=== PATIENT | female | born 1975 | race African-American/Black ===

== ENCOUNTER 2023-03-04 22:37 | Emergency (ER) | payer MEDICAID, OTHER ==
[~2023-03-04] VITALS: Ht 170.2 cm; Wt 91.9 kg
[2023-03-05 01:00] VITALS: BP 120/94
[2023-03-05] MEDS ORDERED: IBUP-1456 PO (01:01)
== END 2023-03-05 01:10 | disposition home or self-care (01) ==
LOC: ER 22:40
DX: S83.91XA Sprain of unspecified site of right knee, initial encounter (principal); X50.9XXA Other and unspecified overexertion or strenuous movements or postures, initial encounter; Y93.89 Activity, other specified; Y92.89 Other specified places as the place of occurrence of the external cause; Y99.8 Other external cause status
CPT/HCPCS: 73562

== ENCOUNTER 2024-11-26 13:19 | Emergency (ER) | payer MEDICAID ==
[~2024-11-26] VITALS: Ht 170.2 cm; Wt 72.7 kg
[~2024-11-26 13:19] MED LIST: IBUP-1456 PO
[2024-11-26 14:23] VITALS: BP 158/94; PULSE 115; RESP 18; TEMP 98.4; O2SAT 100
--- NOTE | 2024-11-26 14:52 | ED.PDOC ---
Musculoskeletal HPI Comments A 49 YEAR OLD FEMALE PRESENTS TO THE ED WITH CHIEF COMPLAINT OF RIGHT LEG PAIN. PATIENT REPORTS THAT SHE HAS BEEN EXPERIENCING SUDDEN ONSET RIGHT LEG PAIN FOR THE PAST 3 DAYS. PATIENT RELAYS THAT SHE HAS HISTORY OF SURGERY TO HER RIGHT LEG BACK IN JANUARY OF 2024, BUT HAS NEVER HAD PAIN LIKE THIS BEFORE. ALSO, PATIENT RE QUESTS AN INHALER FOR HER ASTHMA AND SHE HAS BEEN EXPERIENCING DUE TO HER SMOKING. PATIENT DENIES ANY NUMBNESS, WEAKNESS, INJURY, FALL, OR CHEST PAIN. NO OTHER SYMPTOMS REPORTED AT THIS TIME OF CARE. Chief Complaint: Lower Extremity Time Seen by MD: 14:41 Primary Care Provider: GELY Reviewed Notes: Nurses Notes, Medications, Allergies Allergies: Coded Allergies: NO KNOWN ALLERGIES (Unverified , 11/26/24) Home Meds Active Scripts Albuterol Sulfate (Albuterol Sulfate Hfa) 108 Mcg/Act Aer, 108 MCG IN TID, #90 AER Prov:CARL ALCOCER 11/26/24 Ibuprofen (Ibuprofen) 800 Mg Tab, 1 TAB PO TID, #30 TAB Prov:CARL ALCOCER 11/26/24 Ibuprofen (Ibuprofen) 800 Mg Tab, 1 TAB PO TID PRN, #30 TAB 0 Refills Prov:ELIZABETH EDWARDS 03/05/23 Information Source: Patient Mode of Arrival: Ambulatory Location: Right Extremity Location: Leg Timing: Days Prehospital treatment: None Severity: Moderate Able to Move Extremity: Yes Bear Weight: Limited Pain: Moderate Mechanism: Spontaneous Circumstances: Spontaneous Onset of Symptoms: Spontaneous Symptoms: Pain DVT Risk Factors: NONE Associated signs and symptoms: Leg pain, None Past Medical History PAST MEDICAL HISTORY: Asthma, Denies Surgical History: Hysterectomy Surgical History (Other): RT KNEE SURGERY INVESTMENT BANKING ASSOCIATE History: No Pertinent INVESTMENT BANKING ASSOCIATE History Family History Family History: Unknown Social History Smoker: Non-Smoker Alcohol: Denies ETOH Use Drugs: Denies Drug Use Lives In: Home Constitutional: denies: chills, diaphoresis, fatigue, fever, malaise, sweats, weakness, others EENTM: denies: blurred vision, double vision, ear bleeding, ear discharge, ear drainage, ear pain, ear ringing, eye pain, eye redness, hearing loss, mouth pain, mouth swelling, nasal discharge, nose bleeding, nose congestion, nose pain, photophobia, tearing, throat pain, throat swelling, voice changes, others Respiratory: denies: cough, hemoptysis, orthopnea, SOB at rest, shortness of breath, SOB with excertion, stridor, wheezing, others Cardiovascular: denies: chest pain, dizzy spells, diaphoresis, Dyspnea on exertion, edema, irregular heart beat, left arm pain, lightheadedness, palpitations, PND, syncope, others Gastrointestinal: denies: abdomen distended, abdominal pain, blood streaked bowels, constipated, diarrhea, dysphagia, difficulty swallowing, hematemesis, melena, nausea, poor appetite, poor fluid intake, rectal bleeding, rectal pain, vomiting, others Genitourinary: denies: abnormal vagina bleeding, burning, dyspareunia, dysuria, flank pain, frequency, hematuria, incontinence, pain, , vagina discharge, urgency, others Neurological: denies: dizziness, fainting, headache, left sided numbness, left sided weakness, numbness, paresthesia, pre-existing deficit, right sided numbness, right sided weakness, seizure, speech problems, tingling, tremors, weakness, others Musculoskeletal: reports: muscle pain, others (RT LEG PAIN); denies: back pain, gout, joint pain, joint swelling, muscle stiffness, neck pain Integumetry: denies: bruises, change in color, change in hair/nails, dryness, laceration, lesions, lumps, rash, wounds, others Allergic/Immunocompromised: denies: Difficulty Healing, Frequent Infections, Hives, Itching, others Hematologic/Lymphatic: denies: anemia, blood clots, easy bleeding, easy bruising, swollen glands, others Endocrine: denies: excessive hunger, excessive sweating, excessive thirst, excessive urination, flushing, intolerance to cold, intolerance to heat, unexplained weight gain, unexplained weight loss, others Psychiatric: denies: anxiety, bipolar disorder, depression, hopeless, panic disorder, schizophrenia, sleepless, suicidal, others All Other Systems: Reviewed and Negative Physical Exam General Appearance: No Apparent Distress, Normal HEENT: Normal ENT Inspection, PERRL/EOMI Neck: Full Range of Motion, Non-Tender, Normal, Normal Inspection Respiratory: Chest Non-Tender, Lungs Clear, No Accessory Muscle Use, No Respiratory Distress, Normal Breath Sounds Cardiovascular: No Edema, No JVD, No Murmur, No Gallop, Normal Peripheral P ulses, Regular Rate/Rhythm Breast Exam: Deferred Gastrointestinal: No Organomegaly, Non Tender, No Pulsatile Mass, Normal Bowel Sounds, Soft Genitalia: Deferred Pelvic: Deferred Rectal: Deferred Extremities: No calf tenderness, Normal capillary refill, Normal inspection, Normal range of motion, No pedal edema, Tender (RIGHT LOWER EXTREMITY, NO REDNESS, SWELLING AND DVT SIGNS. ) Musculoskeletal : Apperance: Normal Neurologic: Alert, squeegeer and former II-XII nml as Tested, No Motor Deficits, Normal Affect, Normal Mood, No Sensory Deficits Cerebellar Function: Normal Reflexes: Normal Skin: Dry, Normal Color, Warm Peripheral Pulses: 2+ carotid (R), 2+ carotid (L), 2+ dorsalis pedis (R), 2+ dorsalis pedis (L) Lymphatic: No Adenopathy Was a procedure done? Was a procedure done?: No Differential Diagnosis EXT Differential Diagnosis: Deep Vein Thrombosis, Sprain, Strain X-Ray, Labs, Meds, VS Vital Signs Date Time Temp Pulse Resp B/P (MAP) Pulse Ox O2 Delivery O2 Flow Rate FiO2 11/26/24 14:23 98.4 115 18 158/94 (115) 100 98.4 11/26/24 14:23 115 18 100 Room Air 11/26/24 13:52 98.4 115 18 158/94 (115) 100 Current Medications Medications (Trade) Dose Ordered Sig/Jonatan Route Start Time Stop Time Status Last Admin Acetaminophen/ Hydrocodone Bitart (Squires 5/325MG Tab) 1 tab ONCE ONCE PO 11/26/24 15:15 11/26/24 15:16 DC 11/26/24 15:18 RT DVT US: FINDINGS: Normal phasic venous flow. Veins are fully compressible. No filling defects. IMPRESSION: 1. No evidence of deep vein thrombosis. X-Ray, Labs, Meds, VS Comment EXTERNAL MEDICAL RECORDS REVIEWED: [NONE] INDEPENDENT HISTORIANS: [NONE] SOCIAL DETERMINANTS OF HEALTH: [NONE] LABS ORDERED: NONE REVIEWED AND INTERPRETED RESULTS: RT LOWER DVT US IMAGING ORDERED: RT LOWER DVT US TREATMENTS ORDERED: NORCO 5/325MG PO PROCEDURES PERFORMED: NONE CRITICAL CARE TIME: NONE I HAVE DISCUSSED THE PATIENT WITH THE ATTENDING PHYSICIAN DR. MALDONADO AND HE AGREES WITH THE PATIENT'S PLAN OF CARE AND DISPOSITION. BASED ON HISTORY OF PRESENT ILLNESS, AND PHYSICAL EXAM, PATIENT WILL BE DISCH ARGED HOME. DISCUSSED PLAN FOR DISCHARGE HOME WITH RX. MEDICATION WARNINGS GIVEN. SHARED DECISION MAKING: DISCUSSED WITH PATIENT THAT THEIR WORKUP WAS NORMAL. PATIENT INSTRUCTED TO FOLLOW UP WITH PRIMARY CARE PROVIDER IN 1-2 DAYS FOR RE- EVALUATION OF SYMPTOMS. PATIENT VERBALIZES UNDERSTANDING TO RETURN TO ED FOR NEW OR WORSENING SYMPTOMS OR IF FOLLOW UP WITH PCP CANNOT BE OBTAINED. PATIENT FEELS COMFORTABLE GOING HOME AT THIS TIME. ALL QUESTIONS ADDRESSED AT TIME OF DISCHARGE. Time of 1ST Reevaluation: 16:00 Reevaluation 1ST: Improved Patient Education/Counseling: Diagnosis, Treatment, Need For Follow Up Family Education/Counseling: Diagnosis, Treatment, No Family Present Medical Screening: No EMC Exist At This Time Departure 1 Departure Time of Disposition: 16:00 Impression: Primary Impression: Muscle strain of right lower leg Qualified Codes: S86.911A - Strain of unspecified muscle(s) and tendon(s) at lower leg level, right leg, initial encounter Additional Impression: Medication refill Disposition: 01 HOME / SELF CARE / HOMELESS Condition: Stable Additional Instructions: FOLLOW-UP WITH PCP IN 1 TO 2 DAYS. TAKE MEDICATIONS PRESCRIBED. RETURN TO ED FOR ANY NEW OR WORSENING SYMPTOMS. e-Prescriptions Albuterol Sulfate (Albuterol Sulfate Hfa) 108 Mcg/Act Aer 108 MCG IN TID, #90 AER Prov: CARL ALCOCER 11/26/24 Ibuprofen (Ibuprofen) 800 Mg Tab 1 TAB PO TID, #30 TAB Prov: CARL ALCOCER 11/26/24 Discharged With: Self Critical Care Note Critical Care Time?: No Stability Stability form required: No Heart Score Heart Score: Heart Score Response (Comments) Value History N/A 0 EKG N/A 0 Age N/A 0 Risk Factors N/A 0 Troponin N/A 0 Total 0 I personally scribed for CARL ALCOCER ([email or web address]) on 11/26/24 at 14:52. Electronically submitted by Manolo Blakely ([email or web address]). I personally scribed for CARL ALCOCER ([email or web address]) on 11/26/24 at 15:28. Electronically submitted by Manolo Blakely ([email or web address]). I personally scribed for CARL ALCOCER ([email or web address]) on 11/26/24 at 15:30. Electronically submitted by Manolo Blakely ([email or web address]). CARL ALCOCER Nov 26, 2024 14:52
--- NOTE | 2024-11-26 15:01 | DVH ---
Ultrasound right lower extremity venous doppler INDICATION: PAIN, HX OF RIGHT LOWER FX TECHNIQUE: Duplex venous sonography was performed with real-time and flow sensitive images submitted for evaluation. FINDINGS: Normal phasic venous flow. Veins are fully compressible. No filling defects. IMPRESSION: 1. No evidence of deep vein thrombosis.
[2024-11-26] MEDS: HYDROcodone-ACET 5/325MG TAB PO ONE (15:18)
[2024-11-26] MEDS ORDERED: ALBU108A5 IN (15:35)
[2024-11-26] MEDS ORDERED: IBUP-1456 PO (15:35)
[2024-11-26] MEDS ORDERED: GABA-1250 PO (15:47)
== END 2024-11-26 15:54 | disposition home or self-care (01) ==
LOC: ER 13:28
DX: S86.911A Strain of unspecified muscle(s) and tendon(s) at lower leg level, right leg, initial encounter (principal); J45.909 Unspecified asthma, uncomplicated; Z76.0 Encounter for issue of repeat prescription; Z90.710 Acquired absence of both cervix and uterus; Z98.890 Other specified postprocedural states; X58.XXXA Exposure to other specified factors, initial encounter; Y93.89 Activity, other specified; Y92.89 Other specified places as the place of occurrence of the external cause; Y99.8 Other external cause status
CPT/HCPCS: 93971

== ENCOUNTER 2025-01-14 01:45 | Emergency (ER) | payer MEDICAID ==
[~2025-01-14] VITALS: Ht 170.2 cm; Wt 86.4 kg
[~2025-01-14 01:45] MED LIST changes: +ALBU108A5 IN; +GABA-1250 PO
--- NOTE | 2025-01-14 02:08 | ED.PDOC ---
HPI Comments 49 year old female presents to the ED via EMS with a chief complaint of chest pain onset 1 week. Patient states she has been experiencing intermittent RT sided chest pain, radiates to RT shoulder for the past week, rates pain 7/10. She began experiencing shortness of breath, palpitations and called 911. For the past 2 days, she has been experiencing cough, congestion, headache, sore throat. PMHx asthma, HTN. Denies fevers, chills, nausea, vomiting, diarrhea, abdominal pain, dizziness. No other symptoms or modifying factors present at this time. Chief Complaint: Shortness of Breath Time Seen by MD: 01:55 Primary Care Provider: GELY Reviewed Notes: Medications, Allergies Allergies: Coded Allergies: NO KNOWN ALLERGIES (Unverified , 11/26/24) Home Meds Active Scripts Prednisone (Prednisone) 20 Mg Tab, 20 MG PO DAILY for 4 Days, #4 MG Prov:PRAVIN ROLON MD 01/14/25 Azithromycin (ZITHROMAX TABLET) 250 Mg Tb, 250 MG PO DAILY for 4 Days, #4 TAB Prov:PRAVIN ROLON MD 01/14/25 Acetaminophen (Acetaminophen Er) 650 Mg Tab, 650 MG PO TIDPRN PRN for 5 Days, #15 TAB Prov:PRAVIN ROLON MD 01/14/25 Gabapentin (Gabapentin) 300 Mg Cap, 1 CAP PO BID, #30 CAP Prov:CARL ALCOCER 11/26/24 Albuterol Sulfate (Albuterol Sulfate Hfa) 108 Mcg/Act Aer, 108 MCG IN TID, #90 AER Prov:CARL ALCOCER 11/26/24 Ibuprofen (Ibuprofen) 800 Mg Tab, 1 TAB PO TID, #30 TAB Prov:CARL ALCOCER 11/26/24 Ibuprofen (Ibuprofen) 800 Mg Tab, 1 TAB PO TID PRN, #30 TAB 0 Refills Prov:ELIZABETH EDWARDS 03/05/23 Information Source: Patient, Emergency Med Personnel Mode of Arrival: EMS Severity: Moderate Timing: Weeks Duration: Intermittent Prehospital treatment: None Location: Chest (R) Radiation: Shoulder (R) Quality: Sharp Onset: At Rest Cardiac Risk Factors: Smoker, HTN PE Risk Factors: None History of: None Modifying Factors: Nothing Associated Signs and Symptoms: SOB, Palpitations Vital Signs Vital Signs Date Time Temp Pulse Resp B/P (MAP) Pulse Ox O2 Delivery O2 Flow Rate FiO2 01/14/25 07:05 112 18 146/98 01/14/25 07:02 100 Room Air* 0 21 01/14/25 07:01 98.7 98.7 Physical Exam General: Awake, alert and oriented. No acute distress. Skin: Skin in warm, dry and intact. Appropriate color for ethnicity. HEENT: The head is normocephalic and atraumatic. Conjunctivae are clear without exudates or hemorrhage. Sclera is non-icteric. EOM are intact. No signs of nystagmus. Eyelids are normal in appearance without swelling or lesions. Oral mucosa is pink and moist Neck: The neck is supple with normal range of motion. No JVD. Cardiac: Heart rate and rhythm are normal. No murmurs, gallops, or rubs are a uscultated. Respiratory: No signs of respiratory distress. Lung sounds are clear in all lobes bilaterally without rales, rhonchi, or wheezes. Abdominal: Abdomen is soft, non-tender without distention. Bowel sounds are present and normoactive in all four quadrants. Extremities: Upper and lower extremities are atraumatic in appearance without deformity or edema. Neurological: The patient is awake, alert and oriented to person, place, and time with normal speech. Speech is clear. There is no facial asymmetry. Psychiatric: Appropriate mood and affect. Good judgement and insight. Review of Systems: REVIEW OF SYSTEMS: No fever, no chills, or fatigue HEENT: No sore throat, no earache, no congestion, no neck pain. Cardiac: No chest pain. No palpitations. Lungs: No shortness of breath, no cough. GI: No nausea, no vomiting, no diarrhea, no constipation, no abdominal pain : No dysuria, frequency, or urgency. No hematuria. Musculoskeletal: No joint pain , no joint swelling, no extremity edema. Skin: No rash, no itching. Neuro: No headache, no dizziness, no weakness Past Medical History PAST MEDICAL HISTORY: Asthma, HTN Surgical History: Hysterectomy CHIEF KNOWLEDGE OFFICER History: No Pertinent CHIEF KNOWLEDGE OFFICER History Family History Family History: Unknown Social History Smoker: Cigarettes Alcohol: Denies ETOH Use Drugs: Denies Drug Use Lives In: Home EKG EKG : Comments Nonspecific ST changes, no STEMI. Was a procedure done? Was a procedure done?: No CP Differential Dx Differential Diagnosis: Other (Differential diagnoses considered include acute ischemic coronary syndrome, aortic dissection, cardiac tamponade, mediastinitis, pulmonary embolus, pneumothorax, tension pneumothorax, esophageal rupture, coron poppy artery vasospasm, myocarditis, pericarditis, pneumonia, pulmonary edema, esophageal tear, pancreatitis, aortic stenosis, dilated cardiomyopathy, hypertrophic cardiomyopathy, mitral valve prolapse, malignancy, pleuritis, pneumomediastinum, primary pulmonary hypertension, cholecystitis, esophageal spasm, esophagus, gastritis, GERD, peptic ulcer disease, costochondritis, fibromyalgia, rib fracture, herpes zoster, radicular syndromes, thoracic outlet syndrome, somatization.) X-Ray, Labs, Meds, VS Vital Signs Date Time Temp Pulse Resp B/P (MAP) Pulse Ox O2 Delivery O2 Flow Rate FiO2 01/14/25 07:05 112 18 146/98 01/14/25 07:02 112 20 100 Room Air* 0 21 01/14/25 07:01 98.7 112 18 146/98 (114) 100 98.7 01/14/25 04:33 98.9 110 16 135/95 (108) 99 98.9 01/14/25 02:15 110 16 135/95 01/14/25 01:47 113 01/14/25 01:45 99 Room Air* 0 21 01/14/25 01:45 98.4 135 21 150/91 (110) 99 98.4 Lab Test 01/14/25 05:15 01/14/25 03:01 01/14/25 02:10 Range/Units Troponin I High Sensitivity < 3 L < 3 L < 3 L </=34 ng/L White Blood Count 6.2 4.4-10.8 10^3/uL Red Blood Count 3.98 L 4.0-5.20 10^6/uL Hemoglobin 11.8 L 12.2-16.2 g/dL Hematocrit 34.6 L 36.0-46.0 % Mean Corpuscular Volume 86.8 80.0-100.0 fL Mean Corpuscular Hemoglobin 29.5 28.0-32.0 pg Mean Corpuscular Hemoglobin Concent 34.0 32.0-36.0 g/dL Red Cell Distribution Width 14.4 H 11.8-14.3 % Platelet Count 269 140-450 10^3/uL Mean Platelet Volume 8.4 6.9-10.8 fL Neutrophils (%) (Auto) 54.9 37.0-80.0 % Lymphocytes (%) (Auto) 35.1 10.0-50.0 % Monocytes (%) (Auto) 6.7 0.0-12.0 % Eosinophils (%) (Auto) 2.8 0.0-7.0 % Basophils (%) (Auto) 0.5 0.0-2.0 % Neutrophils # (Auto) 3.4 1.6-8.6 10 ^3/uL Lymphocytes # (Auto) 2.2 0.4-5.4 10 ^3/uL Monocytes # (Auto) 0.4 0-1.3 10 ^3/uL Eosinophils # (Auto) 0.2 0-0.8 10 ^3/uL Basophils # (Auto) 0 0-0.2 10 ^3/uL Nucleated Red Blood Cells 0.0 % Sodium Level 143 136-145 mmol/L Potassium Level 3.4 L 3.5-5.1 mmol/L Chloride Level 106 98-107 mmol/L Carbon Dioxide Level 30 20-31 mmol/L Anion Gap 7 5-15 Blood Urea Nitrogen 7 L 9-23 mg/dL Creatinine 0.85 0.550-1.02 mg/dL Glomerular Filtration Rate Calc 84 >90 mL/min BUN/Creatinine Ratio 8.2 L 10.0-20.0 Serum Glucose 125 H 74-106 mg/dL Calcium Level 10.4 8.7-10.4 mg/dL Total Bilirubin 0.2 0.2-1.0 mg/dL Aspartate Amino Transferase (AST) < 8 L 13-40 U/L Alanine Aminotransferase (ALT) 11 7-40 U/L Alkaline Phosphatase 66 46-116 U/L B-Type Natriuretic Peptide 6.18 0-100 pg/mL Total Protein 7.0 5.7-8.2 g/dL Albumin 4.4 3.2-4.8 g/dL Current Medications Medications (Trade) Dose Ordered Sig/Jonatan Route Start Time Stop Time Status Last Admin Aspirin 324 mg ONCE ONCE PO 01/14/25 02:15 01/14/25 02:16 DC 01/14/25 02:15 Morphine Sulfate 2 mg ONCE ONCE IV 01/14/25 02:15 01/14/25 02:16 DC 01/14/25 02:15 Diazepam (Valium Tablet) 5 mg ONCE ONCE PO 01/14/25 02:15 01/14/25 02:16 DC 01/14/25 02:15 Potassium Chloride (Klor-Con Tablet) 40 meq ONCE ONCE PO 01/14/25 04:30 01/14/25 04:31 DC 01/14/25 04:57 [place] [id number] Ph: [phone] DIAGNOSTIC IMAGING Diagnostic Imaging Report : [id number] Signed PATIENT: ZAIN LAGUNASCCT: [id number] UNIT: [id number] : 1975 LOC: ER ROOM / BED: / AGE / SEX: 49 / F ADM STATUS: REG ER SERVICE 2 ORDERING PHYSICIAN: PRAVIN ROLON MD PROCEDURE(s): CXR1 - CHEST XRAY 1 VIEW REASON: cp ORDER NUMBER(s): [id number], ACCESSION NUMBER(s): [id number] CHEST RADIOGRAPH Indication: cp Technique: Single frontal view of the chest was obtained COMPARISON: None FINDINGS: Lines and Tubes: None Lungs: Clear Pleura: No effusion. No pneumothorax. Cardiomediastinal contours: Unremarkable Bones: Unremarkable IMPRESSION: 1. Clear lungs. ATED BY: GABBY MEYERS MD DICTATED DATE/TIME: 01/14/25230 SIGNED BY: GABBY MEYERS MD SIGNED DATE/TIME: 01/14/25230 CC: Time of 1ST Reevaluation: 02:25 Reevaluation 1ST: Unchanged Patient Education/Counseling: Diagnosis, Treatment, Prognosis Family Education/Counseling: No Family Present Departure 1 Departure Time of Disposition: 05:58 Impression: Primary Impression: Shortness of breath Additional Impressions: Asthma exacerbation Shoulder pain Disposition: 01 HOME / SELF CARE / HOMELESS Condition: Stable Additional Instructions: ED DISCHARGE INSTRUCTIONS Instructions: Please read all instructions provided in this packet carefully. Although you have been discharged from the Emergency Department, this does not mean that you have a "clean bill of health". No definitive diagnosis for your symptoms has been made today. It is possible that you are in the process of developing a serious illness. This is why you must return to the ED without fail if any new or worsening symptoms (especially if your symptoms include chest pain, trouble breathing, abdominal pain, fever, headache, confusion, trouble seeing, or trouble walking) It is also very important that you see a primary care doctor within the next 3-5 days to follow up. If you are unable to get an appointment, return to the ED for re-evaluation. SHORTNESS OF BREATH EDUCATION Shortness of breath has many causes. Sometimes conditions such as anxiety can lead to shortness of breath. Some people get mild shortness of breath when they exercise. Trouble breathing also can be a symptom of a serious problem, such as asthma, lung disease, emphysema, heart problems, and pneumonia. If your shortness of breath continues, you may need tests and treatment. Watch for any changes in your breathing and other symptoms. Follow-up care is a hebert part of your treatment and safety. Be sure to make and go to all appointments, and call your doctor if you are having problems. It's also a good idea to know your test results and keep a list of the medicines you take. How can you care for yourself at home? Do not smoke or allow others to smoke around you. If you need help quitting, ta lk to your doctor about stop-smoking programs and medicines. These can increase your chances of quitting for good. Get plenty of rest and sleep. Take your medicines exactly as prescribed. Call your doctor if you think you are having a problem with your medicine. Find healthy ways to deal with stress. Exercise daily. Get plenty of sleep. Eat regularly and well. When should you call for help? Call 911 anytime you think you may need emergency care. For example, call if: You have severe shortness of breath. You have symptoms of a heart attack. These may include: Chest pain or pressure, or a strange feeling in the chest. Sweating. Shortness of breath. Nausea or vomiting. Pain, pressure, or a strange feeling in the back, neck, jaw, or upper belly or in one or both shoulders or arms. Lightheadedness or sudden weakness. A fast or irregular heartbeat. After you call 911, the repeat photocomposing machine operator may tell you to chew 1 adult-strength or 2 to 4 low-dose aspirin. Wait for an ambulance. Do not try to drive yourself. Call your doctor now or seek immediate medical care if: Your shortness of breath gets worse or you start to wheeze. Wheezing is a high- pitched sound when you breathe. You wake up at night out of breath or have to prop your head up on several pillows to breathe. You are short of breath after only light activity or while at rest. Watch closely for changes in your health, and be sure to contact your doctor if: You do not get better over the next 1 to 2 days. Credits for Shortness of Breath: Care Instructions Current as of: May 06, 2024 Author: [employer] Staff e-Prescriptions Prednisone (Prednisone) 20 Mg Tab 20 MG PO DAILY for 4 Days, #4 MG Prov: PRAVIN ROLON MD 01/14/25 Azithromycin (ZITHROMAX TABLET) 250 Mg Tb 250 MG PO DAILY for 4 Days, #4 TAB Prov: PRAVIN ROLON MD 01/14/25 Acetaminophen (Acetaminophen Er) 650 Mg Tab 650 MG PO TIDPRN PRN for 5 Days, #15 TAB Prov: PRAVIN ROLON MD 01/14/25 Comments 49 year old female with chest pain and shortness of breath. EKG negative for signs of ischemia. Serial High sensitivity troponin negative. CXR shows no acute process. CT angiogram negative for pulmonary embolism. Presentation not suggestive of acute coronary syndrome, pulmonary embolism or aortic dissection. Patient improved at time of discharge and states she would like to go home. No hypoxia, respiratory distress or dyspnea at discharge. Patient able to ambulate without difficulty. Patient well-appearing, nontoxic. Advised prompt follow-up with PCP, return to the ED with any new, worsening or concerning symptoms. Extensive evaluation was performed in attempt to identify or rule out: (See differential diagnosis section) The following tests were ordered, and results were reviewed by me and discussed with patient: (See diagnostic results section) The following test were independently interpreted by me: EKG, chest x-ray I reviewed and agreed with the following test results read by other providers: Chest x-ray I reviewed the following notes from the pt's past medical encounters: N/A Additional information was gathered from interviewing the following independent historians: EMS personnel Discussion of management or test interpretation with external physician/other qualified health lawn care professional: N/A Addressed one or more chronic illnesses with severe exacerbation, progression, or side effects of treatment: Asthma exacerbation Drug therapy requiring intensive monitoring for toxicity: IV contrast Parenteral controlled substances: IV morphine Decision regarding elective major surgery with identified patient or procedure risk factors: N/A Decision regarding emergency major surgery: N/A Decision not to resuscitate or to de-escalate care because of poor prognosis: N/A Diagnosis or treatment significantly limited by social determinants of health: N/A Decision regarding hospitalization or escalation of hospital level of care: Ri sks and benefits of admission for further treatment of patient's condition was considered however due to patient's stable condition patient will be discharged to follow up closely or return to care for worsening of condition or inability to follow up. Critical Care Note Critical Care Time?: No Stability Stability form required: No Heart Score Heart Score: Heart Score Response (Comments) Value History Slightly Suspicious 0 EKG Repolarization Disturb 1 Age 45-64 1 Risk Factors 1 or 2 risk factors 1 Troponin N/A 0 Total 3 I personally scribed for PRAVIN ROLON MD ([email or web address]) on 01/14/25 at 02:08. Electronically submitted by Alysia Dunn ([email or web address]). I personally scribed for PRAVIN ROLON MD ([email or web address]) on 01/14/25 at 04:17. Electronically submitted by Alysia Dunn ([email or web address]). PRAVIN ROLON MD Jan 14, 2025 02:08
[2025-01-14] MEDS: ASPirin 81 mg TAB PO ONE (02:15)
[2025-01-14] MEDS: diazePAM 5 MG TAB PO ONE (02:15)
[2025-01-14] MEDS: MORPHINE SULFATE INJ 2 MG/ml SYRG IV ONE (02:15)
[2025-01-14] MEDS: IBUPROFEN 600 MG TAB PO ONE (02:15)
[2025-01-14] MEDS: ACETAMINOPHEN 500 MG TAB or CAP PO ONE (02:15)
[2025-01-14 02:31] LABS: Basophils # (auto) 0 10 ^3/uL (0-0.2); Basophils % (auto) 0.5 % (0.0-2.0); Eosinophils # (auto) 0.2 10 ^3/uL (0-0.8); Eosinophils % (auto) 2.8 % (0.0-7.0); Hematocrit 34.6 % (36.0-46.0); Hemoglobin 11.8 g/dL (12.2-16.2); Lymphocytes # (auto) 2.2 10 ^3/uL (0.4-5.4); Lymphocytes % (auto) 35.1 % (10.0-50.0); Mean Corpuscular Hemoglobin 29.5 pg (28.0-32.0); Mean Corpuscular Volume 86.8 fL (80.0-100.0); Monocytes # (auto) 0.4 10 ^3/uL (0-1.3); Monocytes % (auto) 6.7 % (0.0-12.0); Neutrophils # (auto) 3.4 10 ^3/uL (1.6-8.6); Neutrophils % (auto) 54.9 % (37.0-80.0); Platelet Count (auto) 269 10^3/uL (140-450); Red Blood Cells 3.98 10^6/uL (4.0-5.20); Red Cell Distribution Width 14.4 % (11.8-14.3); White Blood Cell 6.2 10^3/uL (4.4-10.8)
--- NOTE | 2025-01-14 02:33 | DVH ---
CHEST RADIOGRAPH Indication: cp Technique: Single frontal view of the chest was obtained COMPARISON: None FINDINGS: Lines and Tubes: None Lungs: Clear Pleura: No effusion. No pneumothorax. Cardiomediastinal contours: Unremarkable Bones: Unremarkable IMPRESSION: 1. Clear lungs.
[2025-01-14 02:49] LABS: Alanine Aminotransferase 11 U/L (7-40); Albumin 4.4 g/dL (3.2-4.8); Alkaline Phosphatase 66 U/L (46-116); Anion Gap 7 (5-15); BUN/Creatinine Ratio 8.2 (10.0-20.0); Calcium 10.4 mg/dL (8.7-10.4); Carbon Dioxide 30 mmol/L (20-31); Chloride 106 mmol/L (98-107); Sodium 143 mmol/L (136-145)
[2025-01-14 03:27] LABS: Aspartate Aminotransferase < 8 U/L (13-40); Blood Urea Nitrogen 7 mg/dL (9-23); Glucose 125 mg/dL (74-106); Potassium 3.4 mmol/L (3.5-5.1)
[2025-01-14 03:28] LABS: Bilirubin, Total 0.2 mg/dL (0.2-1.0)
--- NOTE | 2025-01-14 03:32 | ECG ---
[facility] Test Date: 2025-01-14 Test Time: 01:47:42 Pat Name: SHARMILA LAGUNAS Department: ED Room: Gender: F Trash Hauler: ER : 1975 Requested By: PRAVIN ROLON Order Number: [id number] Reading MD: Tj Carrillo Measurements Intervals Hiram Rate: 113 P: 60 PA: 170 QRS: 52 QRSD: 94 T: 27 QT: 334 QTc: 458 Interpretive Statements Sinus tachycardia Probable left atrial enlargement ST elevation suggests acute pericarditis Electronically Signed On 01-14-2025 20:57:57 PDT by Tj Carrillo Please click the below link to view image of tracing.
[2025-01-14] MEDS: IOHEXOL 350 MG/ML 100ML IJ ONE (04:49)
[2025-01-14] MEDS: POTASSIUM CHL 20 Meq TABLET PO ONE (04:57)
--- NOTE | 2025-01-14 05:39 | DVH ---
EXAM: CT Angiography Chest With Intravenous Contrast CLINICAL INDICATION: Rule out pulmonary embolism TECHNIQUE: Axial computed tomographic angiography images of the chest with intravenous contrast. Th is CT exam was performed using one or more of the following dose reduction techniques: automated exp osure control, adjustment of the mA and/or kV according to patient size, and/or use of iterative ori nstruction technique. MIP reconstructed images were created and reviewed. CONTRAST: COMPARISON: None FINDINGS: LIMITATIONS: Suboptimal opacification of the pulmonary arteries. PULMONARY ARTERIES: No pulmonary embolism is identified. Some of the distal pulmonary arteries can not be evaluated due to suboptimal opacification. AORTA: No acute findings. No thoracic aortic aneurysm. LUNGS AND PLEURAL SPACES: Unremarkable. No mass. No consolidation. No significant effusion. No pneumothorax. HEART: Unremarkable. No cardiomegaly. No significant pericardial effusion. No evidence of RV dys function. BONES/JOINTS: No acute fracture. No dislocation. SOFT TISSUES: Unremarkable. LYMPH NODES: Unremarkable. No enlarged lymph nodes. OTHER FINDINGS: . . IMPRESSION: No pulmonary embolism is identified. Some of the distal pulmonary arteries cannot be evaluated due to suboptimal opacification.
[2025-01-14] MEDS ORDERED: PRED20TA2 PO (05:59)
[2025-01-14] MEDS ORDERED: ACET650T12 PO (05:59)
[2025-01-14] MEDS ORDERED: AZIT-185 PO (05:59)
[2025-01-14] MEDS: predniSONE 20 MG TAB PO ONE (06:00)
[2025-01-14] MEDS: AZITHROMYCIN 250 MG TAB PO ONE (06:00)
[2025-01-14 07:01] VITALS: TEMP 98.7
[2025-01-14 07:02] VITALS: PULSE 112; RESP 20; O2SAT 100
[2025-01-14 07:05] VITALS: BP 146/98; PULSE 112; RESP 18
== END 2025-01-14 07:03 | disposition home or self-care (01) ==
LOC: ER 01:45 → EDBD 01:45 → ER 07:03
DX: J45.901 Unspecified asthma with (acute) exacerbation (principal); I10 Essential (primary) hypertension; F17.210 Nicotine dependence, cigarettes, uncomplicated; Z90.710 Acquired absence of both cervix and uterus; Z79.1 Long term (current) use of non-steroidal anti-inflammatories (NSAID); Z79.52 Long term (current) use of systemic steroids; Z79.899 Other long term (current) drug therapy
CPT/HCPCS: 36415; 71045; 71275; 80053; 83880; 84484; 85025; 93005; 96374; 99285; J2270; Q9967

== ENCOUNTER 2025-02-01 11:43 | Emergency (ER) | payer MEDICAID ==
[~2025-02-01] VITALS: Ht 170.2 cm; Wt 80.4 kg
[~2025-02-01 11:43] MED LIST changes: +ACET650T12 PO; +AZIT-185 PO; +PRED20TA2 PO
[2025-02-01] MEDS ORDERED: NYS5LQ MT (12:32)
[2025-02-01] MEDS ORDERED: CETI5TAB6 PO (12:33)
--- NOTE | 2025-02-01 12:33 | ED.PDOC ---
History of Present Illness(SKN HPI Comments 49 year F presents for whitish plaques on the tongue. Symptoms started weeks ago. Denies any other complaint. Denies of any hoarseness difficulty swallowing pain fevers chills nausea vomiting diarrhea Chief Complaint: Allergic Reaction Time Seen by MD: 12:02 Primary Care Provider: LINDA History of Present Illness: Nurses Notes, Medications, Allergies Allergies: Coded Allergies: NO KNOWN ALLERGIES (Unverified , 11/26/24) Home Meds Active Scripts Prednisone (Prednisone) 20 Mg Tab, 20 MG PO DAILY for 4 Days, #4 MG Prov:PRAVIN ROLON MD 01/14/25 Azithromycin (ZITHROMAX TABLET) 250 Mg Tb, 250 MG PO DAILY for 4 Days, #4 TAB Prov:PRAVIN ROLON MD 01/14/25 Acetaminophen (Acetaminophen Er) 650 Mg Tab, 650 MG PO TIDPRN PRN for 5 Days, #15 TAB Prov:PRAVIN ROLON MD 01/14/25 Gabapentin (Gabapentin) 300 Mg Cap, 1 CAP PO BID, #30 CAP Prov:CARL ALCOCER 11/26/24 Albuterol Sulfate (Albuterol Sulfate Hfa) 108 Mcg/Act Aer, 108 MCG IN TID, #90 AER Prov:CARL ALCOCER 11/26/24 Ibuprofen (Ibuprofen) 800 Mg Tab, 1 TAB PO TID, #30 TAB Prov:CARL ALCOCER 11/26/24 Ibuprofen (Ibuprofen) 800 Mg Tab, 1 TAB PO TID PRN, #30 TAB 0 Refills Prov:ELIZABETH EDWARDS 03/05/23 Information Source: Patient Mode of Arrival: Wheelchair Past Medical History PAST MEDICAL HISTORY: Asthma, HTN Surgical History: Hysterectomy OPTIMIZATION ANALYST History: No Pertinent OPTIMIZATION ANALYST History Family History Family History: Unknown Social History Smoker: Cigarettes Alcohol: Denies ETOH Use Drugs: Denies Drug Use Lives In: Home All Other Systems: Reviewed and Negative (per hpi) Physical Exam General Appearance: No Apparent Distress, Normal HEENT: Normal ENT Inspection, Pharynx Normal, TMs Normal, Other (Tongue: white plaque. Uvula midline. Moist mucous membranes) Neck: Full Range of Motion, Non-Tender, Normal, Normal Inspection Respiratory: Chest Non-Tender, Lungs Clear, No Accessory Muscle Use, No Respiratory Distress, Normal Breath Sounds Cardiovascular: No Murmur, No Gallop, Regular Rate/Rhythm Breast Exam: Deferred Gastrointestinal: No Organomegaly, Non Tender, No Pulsatile Mass, Normal Bowel Sounds, Soft Genitalia: Deferred Pelvic: Deferred Rectal: Deferred Extremities: No calf tenderness, Normal capillary refill, Normal inspection, Normal range of motion, Non-tender, No pedal edema Musculoskeletal : Apperance: Normal Neurologic: Alert, visual training aide II-XII nml as Tested, No Motor Deficits, Normal Affect, Normal Mood, No Sensory Deficits Cerebellar Function: Normal Reflexes: Normal Skin: Dry, Normal Color, Warm Lymphatic: No Adenopathy Was a procedure done? Was a procedure done?: No Differential Diagnosis (INTG) Differential Diagnosis: Other X-Ray, Labs, Meds, VS Vital Signs Date Time Temp Pulse Resp B/P (MAP) Pulse Ox O2 Delivery O2 Flow Rate FiO2 02/01/25 11:47 97.8 103 20 153/90 (111) 99 97.8 X-Ray, Labs, Meds, VS Comment Findings are consistent with oral thrush. Symptoms mild to moderate. Not immunocompromised Prescribed nystatin. Take medication as prescribed. Patient is stable for discharge at this time. External notes reviewed. Test results and diagnostic imaging interpreted. All diagnostic findings, discharge care, education and instructions provided Follow-up with PCP in 2 to 3 days Patient verbalized understanding and agreed to treatment plan Vital signs stable, afebrile, no acute distress noted Patient ambulatory with strong steady gait Advised to return precautions for any new or worsening symptoms, return to ER immediately for re-evaluation Patient is aware that the purpose of this visit was for an acute medical emergency requiring emergent stabilization. Chronic conditions, including malignancies have not been ruled out. Patient is instructed to follow up with PCP as directed and discharge instructions for continued care and workup. If unable to arrange follow-up, patient is to return to the emergency department for reassessment. Patient (parent or legal guardian if applicable) was given verbal and written discharge instructions and acknowledges understanding. Time of 1ST Reevaluation: 12:28 Reevaluation 1ST: Improved Patient Education/Counseling: Diagnosis, Treatment Family Education/Counseling: Diagnosis, Treatment Departure 1 Departure Time of Disposition: 12:29 Impression: Primary Impression: Oral candidiasis Disposition: 01 HOME / SELF CARE / HOMELESS Condition: Fair e-Prescriptions Cetirizine Hcl (Cetirizine Hcl) 5 Mg Tab 10 MG PO DAILY for 30 Days, #60 TAB 0 Refills Prov: MARELY CLAIRE MANAGER QUANTITATIVE 02/01/25 Nystatin (Mouth-Throat) (Mycostatin (Mouth-Throat)) 500,000 Units/5 Ml Ss 5 ML MT QID for 5 Days, #100 ML 0 Refills Swish and swallow Prov: MARELY CLAIRE NP 02/01/25 Critical Care Note Critical Care Time?: No Stability Stability form required: No Heart Score Heart Score: Heart Score Response (Comments) Value History N/A 0 EKG N/A 0 Age N/A 0 Risk Factors N/A 0 Troponin N/A 0 Total 0 MARELY CLAIRE MANAGER QUANTITATIVE Feb 01, 2025 12:33
[2025-02-01] MEDS ORDERED: OLOP0.1S7 OP (12:39)
[2025-02-01 12:42] VITALS: BP 153/90; PULSE 103; RESP 20; TEMP 97.8; O2SAT 99
== END 2025-02-01 12:43 | disposition home or self-care (01) ==
LOC: ER 11:44
DX: B37.0 Candidal stomatitis (principal); I10 Essential (primary) hypertension; J45.909 Unspecified asthma, uncomplicated; F17.210 Nicotine dependence, cigarettes, uncomplicated; Z90.710 Acquired absence of both cervix and uterus; Z79.899 Other long term (current) drug therapy; Z79.52 Long term (current) use of systemic steroids; Z79.1 Long term (current) use of non-steroidal anti-inflammatories (NSAID)

== ENCOUNTER 2025-02-10 22:41 | Emergency (ER) | payer MEDICAID ==
[~2025-02-10] VITALS: Ht 170.2 cm; Wt 80.5 kg
[~2025-02-10 22:41] MED LIST changes: +CETI5TAB6 PO; +NYS5LQ MT; +OLOP0.1S7 OP
--- NOTE | 2025-02-10 23:10 | ED.PDOC ---
Back pain HPI HPI Comments PT PRESENTED TO ED FOR RIGHT LEG PAIN X1 WEEK THAT WORSENED TODAY D/T EXCESSIVE WALKING OUTSIDE IN BACK YARD. (-) NUMBNESS/TINGLING. CSM-INTACT. NO SWELLING NOTED. PT STATED SHE IS PENDING X-RAY ORDERED BY PCP. Denies numbness or weakness denies any other known injury new injury. Time Seen by MD: 22:46 Primary Care Provider: LINDA Reviewed Notes: Nurses Notes, Medications, Allergies Allergies: Coded Allergies: NO KNOWN ALLERGIES (Unverified , 11/26/24) Home Meds Active Scripts Meloxicam (Meloxicam) 15 Mg Tab, 1 TAB PO DAILY for 7 Days, #7 TAB Prov:ALFREDO KEY SENIOR ANALYSIS SPECIALIST 02/11/25 Olopatadine HCl (Pataday) 0.1 % Kristin, 0.1 % OP Q8HP PRN for 30 Days, #1 ML 0 Refills Prov:MARELY CLAIRE NP 02/01/25 Cetirizine Hcl (Cetirizine Hcl) 5 Mg Tab, 10 MG PO DAILY for 30 Days, #60 TAB 0 Refills Prov:MARELY CLAIRE NP 02/01/25 Nystatin (Mouth-Throat) (Mycostatin (Mouth-Throat)) 500,000 Units/5 Ml Ss, 5 ML MT QID for 5 Days, #100 ML 0 Refills Swish and swallow Prov:MARELY CLAIRE NP 02/01/25 Prednisone (Prednisone) 20 Mg Tab, 20 MG PO DAILY for 4 Days, #4 MG Prov:PRAVIN ROLON MD 01/14/25 Azithromycin (ZITHROMAX TABLET) 250 Mg Tb, 250 MG PO DAILY for 4 Days, #4 TAB Prov:PRAVIN ROLON MD 01/14/25 Acetaminophen (Acetaminophen Er) 650 Mg Tab, 650 MG PO TIDPRN PRN for 5 Days, #15 TAB Prov:PRAVIN ROLON MD 01/14/25 Gabapentin (Gabapentin) 300 Mg Cap, 1 CAP PO BID, #30 CAP Prov:CARL ALCOCER 11/26/24 Albuterol Sulfate (Albuterol Sulfate Hfa) 108 Mcg/Act Aer, 108 MCG IN TID, #90 AER Prov:CARL ALCOCER 11/26/24 Ibuprofen (Ibuprofen) 800 Mg Tab, 1 TAB PO TID, #30 TAB Prov:CARL ALCOCER 11/26/24 Ibuprofen (Ibuprofen) 800 Mg Tab, 1 TAB PO TID PRN, #30 TAB 0 Refills Prov:ELIZABETH EDWARDS 03/05/23 Information Source: Patient Past Medical History PAST MEDICAL HISTORY: Asthma, HTN Surgical History: Hysterectomy STOCK BUYER History: No Pertinent STOCK BUYER History Family History Family History: Unknown Social History Smoker: Cigarettes Alcohol: Denies ETOH Use Drugs: Denies Drug Use Lives In: Home Constitutional: denies: chills, diaphoresis, fatigue, fever, malaise, sweats, weakness, others EENTM: denies: blurred vision, double vision, ear bleeding, ear discharge, ear drainage, ear pain, ear ringing, eye pain, eye redness, hearing loss, mouth pain, mouth swelling, nasal discharge, nose bleeding, nose congestion, nose pain, photophobia, tearing, throat pain, throat swelling, voice changes, others Respiratory: denies: cough, hemoptysis, orthopnea, SOB at rest, shortness of breath, SOB with excertion, stridor, wheezing, others Cardiovascular: denies: chest pain, dizzy spells, diaphoresis, Dyspnea on exert ion, edema, irregular heart beat, left arm pain, lightheadedness, palpitations, PND, syncope, others Gastrointestinal: denies: abdomen distended, abdominal pain, blood streaked bowels, constipated, diarrhea, dysphagia, difficulty swallowing, hematemesis, melena, nausea, poor appetite, poor fluid intake, rectal bleeding, rectal pain, vomiting, others Genitourinary: denies: abnormal vagina bleeding, burning, dyspareunia, dysuria, flank pain, frequency, hematuria, incontinence, pain, , vagina discharge, urgency, others Neurological: denies: dizziness, fainting, headache, left sided numbness, left sided weakness, numbness, paresthesia, pre-existing deficit, right sided numbness, right sided weakness, seizure, speech problems, tingling, tremors, weakness, others Musculoskeletal: denies: back pain, gout, joint pain, joint swelling, muscle pain, muscle stiffness, neck pain, others Integumetry: denies: bruises, change in color, change in hair/nails, dryness, laceration, lesions, lumps, rash, wounds, others Allergic/Immunocompromised: denies: Difficulty Healing, Frequent Infections, Hives, Itching, others Hematologic/Lymphatic: denies: anemia, blood clots, easy bleeding, easy bruising, swollen glands, others Endocrine: denies: excessive hunger, excessive sweating, excessive thirst, excessive urination, flushing, intolerance to cold, intolerance to heat, unexplained weight gain, unexplained weight loss, others Psychiatric: denies: anxiety, bipolar disorder, depression, hopeless, panic disorder, schizophrenia, sleepless, suicidal, others Physical Exam General Appearance: No Apparent Distress, Normal HEENT: Pharynx Normal Neck: Full Range of Motion, Non-Tender Respiratory: Accessory Muscle Use, Chest Non-Tender, Lungs Clear, No Respiratory Distress, Normal Breath Sounds Cardiovascular: No Edema, No JVD, No Murmur, No Gallop, Normal Peripheral Pulses, Regular Rate/Rhythm Breast Exam: Deferred Gastrointestinal: No Organomegaly, Non Tender, No Pulsatile Mass, Normal Bowel Sounds, Soft Genitalia: Deferred Pelvic: Deferred Rectal: Deferred Extremities: Normal capillary refill, Normal inspection, Normal range of motion, Non-tender, No pedal edema Musculoskeletal : Location: Right Extremity Location: Ankle (Noted trace edema lateral malleolus aspect with old scarred over wound no noted drainage or erythema strength sensory motion intact this is a pedal pulse) Apperance: Normal Neurologic: Alert, copy preparer II-XII nml as Tested, No Motor Deficits, Normal Affect, Normal Mood, No Sensory Deficits Cerebellar Function: Normal Reflexes: Normal Skin: Dry, Normal Color, Warm Lymphatic: No Adenopathy Was a procedure done? Was a procedure done?: No Back Pain Differential Dx Differential Diagnosis: Fracture, Musculoskeletal Pain, Strain X-Ray, Labs, Meds, VS Vital Signs Date Time Temp Pulse Resp B/P (MAP) Pulse Ox O2 Delivery O2 Flow Rate FiO2 02/11/25 00:01 Room Air* 0 21 02/11/25 00:01 98.2 102 16 137/101 (113) 97 98.2 02/10/25 23:12 98.2 102 16 137/101 (113) 97 98.2 Current Medications Medications (Trade) Dose Ordered Sig/Jonatan Route Start Time Stop Time Status Last Admin Acetaminophen/ Hydrocodone Bitart ([place] 5/325MG Tab) 1 tab ONCE ONCE PO 02/11/25 00:45 02/11/25 00:46 DC 02/11/25 00:44 Ibuprofen (Motrin Tablet) 600 mg ONCE ONCE PO 02/11/25 00:45 02/11/25 00:46 DC 02/11/25 00:43 X-Ray, Labs, Meds, VS Comment X-RAY RIGHT ANKLE FINDINGS/IMPRESSION: : Hardware within the distal tibia without evidence of complication. Chronic healed distal tibial fracture with callus formation. No evidence of acute osseous abnormality. The visualized joint spaces are well preserved. Retrocalcaneal enthesopathy. The soft tissue elements are grossly unremarkable. PATIENT WAS GIVEN NORCO 5 MG AND IBUPROFEN 600 MG REPORTS IMPROVEMENT IN PAIN FUNCTION REQUESTING DISCHARGE AT THIS TIME.. ABOVE SHOWS NO ACUTE FRACTURES OR OSSEOUS LESIONS DOES SHOW TIBIAL CALLUS FORMATION OF THE OLD FRACTURE. PATIENT TO FOLLOW UP WITH THE SURGEON AND CONSIDER REMOVAL OF THE SCREWS AND HARDWARE. SCRIPT MELOXICAM 15 MG ONCE DAILY NEEDED FOR PAIN SWELLING. ADVISED TO TAKE MEDICATIONS PRESCRIBED SIDE EFFECTS WERE DISCUSSED. FOLLOW UP WITH YOUR PCP IN 2 DAYS NECESSARY CONSIDER FURTHER IMAGING SUCH MRI OR CT IF SYMPTOMS PERSIST. ER RETURN PRECAUTIONS GIVEN PATIENT INDICATED UNDERSTANDING AND AGREES WITH DISCHARGE PLAN OF CARE. Time of 1ST Reevaluation: 23:09 Reevaluation 1ST: Unchanged Time of 2ND Reevaluation: 02:15 Reevaluation 2ND: Improved Patient Education/Counseling: Diagnosis, Treatment, Prognosis, Need For Follow Up Family Education/Counseling: No Family Present Departure 1 Departure Time of Disposition: 02:17 Impression: Primary Impression: Ankle pain, right Qualified Codes: M25.571 - Pain in right ankle and joints of right foot Disposition: 01 HOME / SELF CARE / HOMELESS Condition: Stable e-Prescriptions Meloxicam (Meloxicam) 15 Mg Tab 1 TAB PO DAILY for 7 Days, #7 TAB Prov: ALFREDO KEY 02/11/25 Discharged With: Self Critical Care Note Critical Care Time?: No Stability Stability form required: ALFREDO Ortega February 10, 2025 23:10
[2025-02-11 00:01] VITALS: BP 137/101; PULSE 102; RESP 16; TEMP 98.2; O2SAT 97
[2025-02-11] MEDS: IBUPROFEN 600 MG TAB PO ONE (00:43)
[2025-02-11] MEDS: HYDROcodone-ACET 5/325MG TAB PO ONE (00:44)
--- NOTE | 2025-02-11 02:05 | DVH ---
CLINICAL INDICATION: PAIN AND SWELLING TECHNIQUE: XY R ANKLE 3 VIEW Comparison: None FINDINGS/IMPRESSION: : Hardware within the distal tibia without evidence of complication. Chronic healed distal tibial fract ure with callus formation. No evidence of acute osseous abnormality. The visualized joint spaces are well preserved. Retrocalcaneal enthesopathy. The soft tissue elements are grossly unremarkable.
[2025-02-11] MEDS ORDERED: MELO15TA29 PO (02:19)
== END 2025-02-11 02:25 | disposition home or self-care (01) ==
LOC: ER 22:41
DX: M25.571 Pain in right ankle and joints of right foot (principal); M79.604 Pain in right leg; R20.2 Paresthesia of skin; R20.0 Anesthesia of skin; I10 Essential (primary) hypertension; J45.909 Unspecified asthma, uncomplicated; F17.210 Nicotine dependence, cigarettes, uncomplicated; Z90.710 Acquired absence of both cervix and uterus; Z79.52 Long term (current) use of systemic steroids; Z79.1 Long term (current) use of non-steroidal anti-inflammatories (NSAID); Z79.899 Other long term (current) drug therapy
CPT/HCPCS: 73610

== ENCOUNTER 2025-03-10 23:31 | Emergency (ER) | payer MEDICAID ==
[~2025-03-10] VITALS: Ht 170.2 cm; Wt 81.8 kg
[2025-03-11 00:29] VITALS: TEMP 97.3
[2025-03-11] MEDS ORDERED: ACET500T58 PO (00:38)
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
[2025-03-11 00:40] VITALS: BP 158/93; PULSE 93; RESP 22; O2SAT 98
--- NOTE | 2025-03-11 01:11 | DVH ---
Right lower extremity venous duplex Clinical History: right leg pain Comparison: US RT LOWER DVT on DOS: 11/26/24 Technique: Duplex Doppler evaluation of the deep venous system of the right lower extremity from the common femo ral vein to the popliteal vein including color Doppler and spectral/pulsed waveform analysis was perf ormed. Findings: The common femoral vein demonstrates appropriate compressibility and waveform variability. There is compressibility/patency of the great saphenous vein at the proximal thigh. The femoral vein demonstrates appropriate compressibility and waveform variability. The deep femoral vein demonstrates appropriate compressibility and waveform variability. The popliteal vein demonstrates appropriate compressibility and waveform variability. There is normal compressibility at the tibioperoneal trunk. Impression: No right femoropopliteal venous thrombosis. If clinical concern/symptoms persist or worsen, short-interval follow-up study is suggested.
--- NOTE | 2025-03-11 01:12 | DVH ---
CHEST RADIOGRAPH Indication: bilateral rib pain Technique: Frontal and lateral view of the chest was obtained Comparison: None FINDINGS: Lines and Tubes: None Lungs: Clear Pleura: No effusion. No pneumothorax. Cardiomediastinal contours: Unremarkable Bones: Unremarkable IMPRESSION: No evidence of acute disease.
[2025-03-11] MEDS: KETOROLAC TROMETH 60MG/2ML VIAL IM ONE (01:25)
== END 2025-03-11 01:58 | disposition home or self-care (01) ==
LOC: ER 23:31
DX: S86.911A Strain of unspecified muscle(s) and tendon(s) at lower leg level, right leg, initial encounter (principal); S20.213A Contusion of bilateral front wall of thorax, initial encounter; F17.210 Nicotine dependence, cigarettes, uncomplicated; I10 Essential (primary) hypertension; J45.909 Unspecified asthma, uncomplicated; Z90.710 Acquired absence of both cervix and uterus; Z79.899 Other long term (current) drug therapy; Z79.52 Long term (current) use of systemic steroids; Z79.1 Long term (current) use of non-steroidal anti-inflammatories (NSAID); Z98.890 Other specified postprocedural states; X58.XXXA Exposure to other specified factors, initial encounter; Y93.89 Activity, other specified; Y92.89 Other specified places as the place of occurrence of the external cause; Y99.8 Other external cause status
CPT/HCPCS: 71046; 93971; 96372; 99285; J1885